=== PATIENT | male | born 1990 | race Caucasian/White ===

== ENCOUNTER 2018-01-26 18:07 | Emergency (ER) | payer OTHER, MEDICAID ==
[2018-01-26 18:13] VITALS: BP 146/77
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
== END 2018-01-26 18:59 | disposition home or self-care (01) ==
DX: S10.91XA Abrasion of unspecified part of neck, initial encounter (principal); V49.9XXA Car occupant (driver) (passenger) injured in unspecified traffic accident, initial encounter